=== PATIENT | female | born 2000 | race African-American/Black ===

== ENCOUNTER 2022-08-16 13:06 | Outpatient (CLI) | payer OTHER | END 2022-08-16 13:07 | disposition home or self-care (01) | LOC: CSHULT 13:06 | PROVIDERS: ATTEND Advanced Practice Midwife | DX: Z34.93 Encounter for supervision of normal pregnancy, unspecified, third trimester (principal); Z3A.32 32 weeks gestation of pregnancy | CPT/HCPCS: 76805 ==

== ENCOUNTER 2022-10-09 19:54 | Inpatient (IN) | payer BC, OTHER ==
[~2022-10-09 19:54] MED LIST: Bupivacaine 0.25% HCL 30 ML VIAL ONE; ePHEDrine Sulfate 50 MG/10 ML VIAL ONE
[2022-10-09 20:57] VITALS: BMI 34.7
[2022-10-09] MEDS ORDERED: Misoprostol 100 MCG TAB ONE (21:08)
[2022-10-09] MEDS ORDERED: HYDROcodone/Acetaminophen 5/325 mg Tablet PO PRN (21:25)
[2022-10-09] MEDS ORDERED: Ondansetron PF 4 MG/2 ML Vial IVP PRN (21:25)
[2022-10-09] MEDS ORDERED: Tranexamic Acid 1,000 MG/10 ML VIAL IVP PRN (21:25)
[2022-10-09] MEDS ORDERED: Carboprost 250 MCG/ML AMP IM PRN (21:25)
[2022-10-09] MEDS ORDERED: Misoprostol 200 MCG TAB PR PRN (21:25)
[2022-10-09] MEDS ORDERED: Ibuprofen 800 MG TAB PO PRN (21:25)
[2022-10-09] MEDS ORDERED: fentaNYL 50 mcg/mL 1 mL Vial SLOW IVP PRN (21:25)
[2022-10-09] MEDS ORDERED: Diphenoxylate HCl/Atropine Tablet PO PRN (21:25)
[2022-10-09] MEDS ORDERED: Lidocaine 1% (PF) 30 ML VIAL SC PRN (21:25)
[2022-10-09] MEDS ORDERED: Acetaminophen 500 MG TAB PO PRN (21:25)
[2022-10-09] MEDS ORDERED: Promethazine HCl 25 MG/ML VIAL IM PRN (21:25)
[2022-10-09] MEDS ORDERED: hydrALAZINE 20 MG/ML VIAL SLOW IVP PRN (21:25)
[2022-10-09] MEDS ORDERED: Methylergonovine 0.2 MG/ML VIAL IM PRN (21:25)
[2022-10-09] MEDS ORDERED: Lactated Ringer's 1,000 ML IV SCH (21:30)
[2022-10-09] MEDS ORDERED: NS w/ Oxytocin 30 units 500 ML IV SCH ×3 (21:30)
[2022-10-09 21:43] LABS: Hemoglobin 11.4 g/dL (12.0-15.5); Mean Corpuscular HGB CONC 33.8 g/dL (32.0-36.0); Mean Corpuscular Hemoglobin 30.9 pg (27.0-33.0); Mean Corpuscular Volume 91.3 fl (81.6-98.3); Mean Platelet Volume 9.4 fl (7.4-10.4); Platelet Count 332 10x3/uL (150-450); RBC Distribution Width 15.7 % (11.5-14.5); Red Blood Cell (RBC) Count 3.69 10x6/uL (3.90-5.03); White Blood Cell (WBC) Count 12.6 10x3/uL (3.5-10.5)
[2022-10-09 22:10] LABS: HBSAg Index 0.14 S/CO (0-0.99); Hep B Surf Ag - L&D Non-Reactive S/CO (NonReactive)
[2022-10-09 22:11] LABS: Syphilis Antibody Nonreactive (Nonreactive); Syphilis Antibody Index 0.02 S/CO (<1.00 Non-Reactive)
[2022-10-10] MEDS ORDERED: Penicillin G Potassium 5 MILL.UNITS in Sodium Chloride 0.9% 100 ML IVPB SCH
[2022-10-10] MEDS ORDERED: Penicillin G 2.5 MILL.units 2.5 MILL.UNITS in Premix Bag 1 BAG IVPB SCH (04:00)
[2022-10-10] MEDS ORDERED: fentaNYL/Ropivacaine Epidural 100 ML ONE (05:48)
[2022-10-10] MEDS ORDERED: Penicillin G Potassium 5 MILL.UNITS VIAL ONE (06:04)
[2022-10-10] MEDS ORDERED: Acetaminophen 325 MG TAB PO PRN (06:42)
[2022-10-10] MEDS ORDERED: ePHEDrine Sulfate 50 MG/10 ML VIAL SLOW IVP PRN (06:42)
[2022-10-10] MEDS ORDERED: Ondansetron PF 4 MG/2 ML Vial IVP PRN ×3 (06:42→12:07)
[2022-10-10] MEDS ORDERED: Promethazine HCl 25 MG/ML VIAL IM PRN ×2 (06:42→10:49)
[2022-10-10] MEDS ORDERED: Lactated Ringer's 500 ML IV PRN (06:42)
[2022-10-10] MEDS ORDERED: Naloxone HCl 0.4 mg/ml Vial IVP PRN ×4 (06:42→10:49)
[2022-10-10] MEDS ORDERED: Moisturizing Cream (Eucerin) 113 GM JAR TOP PRN ×2 (06:42→10:49)
[2022-10-10] MEDS ORDERED: diphenhydrAMINE 50 MG/ML VIAL IVP PRN ×2 (06:42→10:49)
[2022-10-10] MEDS ORDERED: Communication Order-Pharmacy FS SCH ×2 (06:45→11:00)
[2022-10-10] MEDS ORDERED: fentaNYL 2 mcg/Ropivacaine 0.2% Epidural 100 ML CADD EPIDURAL SCH (06:45)
[2022-10-10] MEDS ORDERED: Famotidine/PF 20 mg/2ml Vial SLOW IVP PRN (09:19)
[2022-10-10] MEDS ORDERED: Bicitra 30 ML UDCUP PO PRN (09:19)
[2022-10-10] MEDS ORDERED: CEFAZOLIN 2 GM VIAL ONE (09:19)
[2022-10-10] MEDS ORDERED: Azithromycin 500 MG VIAL ONE (09:19)
[2022-10-10] MEDS ORDERED: Famotidine/PF 20 mg/2ml Vial ONE (09:20)
[2022-10-10] MEDS ORDERED: CEFAZOLIN 2 GM in Sodium Chloride 0.9% 100 ML IVPB SCH (09:30)
[2022-10-10] MEDS ORDERED: Azithromycin 500 MG in Sodium Chloride 0.9% 250 ML 250 ML IVPB SCH (09:30)
[2022-10-10] MEDS ORDERED: Ondansetron HCl/PF 4 MG/2 ML Vial IVP PRN (10:49)
[2022-10-10] MEDS ORDERED: HYDROmorphone 2 MG/ML VIAL SLOW IVP PRN (10:49)
[2022-10-10] MEDS ORDERED: Promethazine HCl 25 MG SUPP PR PRN (10:49)
[2022-10-10] MEDS ORDERED: Meperidine HCl/PF 25 MG/ML VIAL SLOW IVP PRN (10:49)
[2022-10-10] MEDS ORDERED: Fentanyl 100 MCG/2 ML VIAL SLOW IVP PRN (10:49)
[2022-10-10] MEDS ORDERED: Naloxone HCl 0.4 mg/ml Vial IV PRN (10:49)
[2022-10-10] MEDS ORDERED: Ketorolac Tromethamine 30 MG/ML VIAL IVP SCH (11:00)
[2022-10-10] MEDS ORDERED: Boostrix 0.5 ML (Tdap) VIAL (>/=7 yrs of age) IM ONE (12:07)
[2022-10-10] MEDS ORDERED: diphenhydrAMINE 25 MG CAP PO PRN (12:07)
[2022-10-10] MEDS ORDERED: hydrALAZINE 20 MG/ML VIAL SLOW IVP PRN (12:07)
[2022-10-10] MEDS ORDERED: Lanolin Ointment 7 GM TUBE TOP PRN (12:07)
[2022-10-10] MEDS ORDERED: Bisacodyl 10 MG SUPP PR PRN (12:07)
[2022-10-10] MEDS: Misoprostol 100 MCG TAB VAG SCH (14:03)
[2022-10-10] MEDS: Ketorolac Tromethamine 30 MG/ML VIAL IVP PRN ×2 (14:41→21:08)
[2022-10-10] MEDS: Ferrous Sulfate 325 MG TAB PO SCH (19:15)
[2022-10-10] MEDS: Docusate 100 MG CAP PO SCH (21:08)
[2022-10-10] MEDS ORDERED: Meperidine HCl/PF 25 MG/ML VIAL IM PRN (23:00)
[2022-10-10] MEDS ORDERED: HYDROcodone/Acetaminophen 5/325 mg Tablet PO PRN (23:00)
[2022-10-11 04:53] LABS: Hemoglobin 8.9 g/dL (12.0-15.5); Mean Corpuscular HGB CONC 32.4 g/dL (32.0-36.0); Mean Corpuscular Hemoglobin 30.3 pg (27.0-33.0); Mean Corpuscular Volume 93.5 fl (81.6-98.3); Mean Platelet Volume 9.5 fl (7.4-10.4); Platelet Count 233 10x3/uL (150-450); RBC Distribution Width 15.7 % (11.5-14.5); Red Blood Cell (RBC) Count 2.94 10x6/uL (3.90-5.03); White Blood Cell (WBC) Count 16.5 10x3/uL (3.5-10.5)
[2022-10-11] MEDS: Ketorolac Tromethamine 30 MG/ML VIAL IVP PRN (04:53)
[2022-10-11] MEDS: Prenatal Vitamin 1 TAB PO SCH (08:16)
[2022-10-11] MEDS: Docusate 100 MG CAP PO SCH ×2 (08:16→21:23)
[2022-10-11] MEDS: Ferrous Sulfate 325 MG TAB PO SCH ×2 (08:16→21:23)
[2022-10-11] MEDS: HYDROcodone/Acetaminophen 5/325 mg Tablet PO PRN ×3 (08:17→21:53)
[2022-10-11] MEDS: Ibuprofen 800 MG TAB PO SCH ×2 (14:26→21:23)
[2022-10-11] MEDS: Simethicone Chewable 80 MG TAB PO PRN (21:53)
[2022-10-12] MEDS: Ibuprofen 800 MG TAB PO SCH ×3 (05:39→21:31)
[2022-10-12] MEDS: Prenatal Vitamin 1 TAB PO SCH (08:33)
[2022-10-12] MEDS: Docusate 100 MG CAP PO SCH ×2 (08:33→21:31)
[2022-10-12] MEDS: Ferrous Sulfate 325 MG TAB PO SCH ×2 (08:33→21:31)
[2022-10-12] MEDS: Simethicone Chewable 80 MG TAB PO PRN (08:33)
[2022-10-12] MEDS: HYDROcodone/Acetaminophen 5/325 mg Tablet PO PRN ×2 (08:33→18:32)
[2022-10-12 20:18] VITALS: TEMP 98.1
[2022-10-13] MEDS: HYDROcodone/Acetaminophen 5/325 mg Tablet PO PRN ×2 (04:41→08:47)
[2022-10-13] MEDS: Ibuprofen 800 MG TAB PO SCH (06:18)
[2022-10-13 07:59] VITALS: BP 110/72
[2022-10-13] MEDS: Ferrous Sulfate 325 MG TAB PO SCH (08:47)
[2022-10-13] MEDS: Prenatal Vitamin 1 TAB PO SCH (08:47)
[2022-10-13] MEDS: Docusate 100 MG CAP PO SCH (08:47)
== END 2022-10-13 14:30 | disposition home or self-care (01) | DRG 787 ==
LOC: CSHLD 19:54 → CSHPP 10-10 12:55
PROVIDERS: ADMIT Family Medicine; ATTEND Family Medicine
PROC: 10D00Z1 Extraction of Products of Conception, Low, Open Approach (ICD-10-PCS; principal; 2022-10-10)
PROC: 10907ZC Drainage of Amniotic Fluid, Therapeutic from Products of Conception, Via Natural or Artificial Opening (ICD-10-PCS; 2022-10-10)
PROC: 3E0P7VZ Introduction of Hormone into Female Reproductive, Via Natural or Artificial Opening (ICD-10-PCS; 2022-10-10)
PROC: 10H07YZ Insertion of Other Device into Products of Conception, Via Natural or Artificial Opening (ICD-10-PCS; 2022-10-10)
DX: O48.0 Post-term pregnancy (principal); O72.1 Other immediate postpartum hemorrhage; O99.824 Streptococcus B carrier state complicating childbirth; O76 Abnormality in fetal heart rate and rhythm complicating labor and delivery; Z3A.40 40 weeks gestation of pregnancy; Z37.0 Single live birth
CPT/HCPCS: 36415; 51702; 85027; 86780; 86850; 86900; 86901; 87340; J1885; J3010; S0020

== ENCOUNTER 2025-01-23 22:12 | Emergency (ER) | payer BC, OTHER, SELFPAY ==
[2025-01-23] MEDS ORDERED: Ketorolac Tromethamine 30 MG (1 mL) VIAL ONE (23:39)
== END 2025-01-24 02:09 | disposition home or self-care (01) ==
LOC: CSHERS 22:12
DX: R55 Syncope and collapse (principal); R00.2 Palpitations; R07.89 Other chest pain; D72.829 Elevated white blood cell count, unspecified; F17.200 Nicotine dependence, unspecified, uncomplicated
CPT/HCPCS: 96374